=== PATIENT | male | born 1990 | race Caucasian/White ===

== ENCOUNTER 2016-09-23 10:56 | Emergency (ER) | payer SELFPAY ==
[~2016-09-23] VITALS: Ht 175.3 cm; Wt 70.0 kg
[2016-09-23 11:01] VITALS: BP 126/85; PULSE 105; RESP 16; O2SAT 100
--- NOTE | 2016-09-23 11:08 | ED.REPORT ---
HPI-Dental/Mouth Prob Date of Service Sep 23, 2016 ED Provider: History of Present Illness: left sided jaw pain since yesterday, takes THC for the pain. no dental care. primary care is no one. normally healthy 10/22 Nursing Notes Stated Complaint: POSS ABSCESS WISDOM TOOTH Chief Complaint: Dental Nursing Notes Reviewed: Yes Allergies: Coded Allergies: amoxicillin (Verified Allergy, Severe, Rash, 04/01/15) General Time Seen by MD: 11:07 Chief Complaint Tooth pain Hx Obtained From: Patient Onset Occurred: Yesterday Past Medical History Past Medical History denies Denies: Asthma, Diabetes mellitus Past Surgical History none Smoking History Current Every Day Smoker (1 to 2 cigars a day for 13 years) Social History Alcohol Use: "Social" Drug Use: THC Occupation live with grandma and partner, no work or school at this time 09/23/2016 Ambulatory Status Independent Review of Systems Basic Review of Systems Eyes: Vision NL, No discharge Hematologic: No bleeding, No bruising Psychiatric: Normal thought content Physical Exam Initial Vital Signs Vital Signs (First) Date Time Temp Pulse Resp B/P Pulse Ox O2 Delivery O2 Flow Rate FiO2 09/23/16 11:01 37.2 105 16 126/85 100 Room Air Initial VS: Reviewed, Vital signs normal General/Constitutional: Well-developed, Well-nourished Head / Eyes: Atraumatic, Normocephalic, PERRL Respiratory: Breath sounds normal, Clear to auscultation, No respiratory distress Cardiovascular: Regular rate & rhythm, Heart sounds normal, Intact distal pulses Abdomen / GI: Soft, Non-tender, No guarding, No rebound, No distention Back: No CVA tenderness Lymphatic: No lymphadenopathy Extremities: Vascular intact, Neuro intact, No swelling, No tenderness Skin: Warm, Dry, No cyanosis Neurologic: Alert, Oriented, Nonfocal Psychiatric: Mood/affect normal, Behavior normal, Normal thought content ENT: Atraumatic, Airway patent, Mucous membranes moist, Pharynx NL, No peritonsillar abscess oral exam shows upper left molar with extensive decay. Able to open mouth 3 fingers width wide. No visible discharge or gum swelling. no lymph node swelling Neck: Atraumatic, Supple, No meningismus General/Constitutional: Awake, Alert, No acute distress Respiratory / Chest: Atraumatic, Breath sounds NL, Breath sounds = bilat, No respiratory distress Cardiovascular: Heart rate NL, Regular rhythm, Heart sounds NL, No gallop Re-Eval/Medical Decision Med Decision/Clinical Course 25 year old male presents to the ER for evualation of left sided jaw pain which started yesterday. Exam indicates ears are fine. oral exam shows a left upper molar with extensive decay. No gum swelling, no trismus, no lymph node involvement. No sign of any abscess or tooth fracture. Patient does not want an injection of toradol for the wants, only wants pills. Discharge & Departure Primary Impression: Toothache Disposition: Home Patient Instructions: Dental Caries (ED) Additional Instructions: You have a clear cavity in the molar. Please start antibiotics clindamycin 300 mg 4 times a day for 10 days. Also ibuprofen 800 mg 3 times a day for 5 days. You will need to see a dentist to address this issue. Please use the list of resources to call and get definitive care for your tooth. Referrals: [facility] Dental [facility] EDSupervising Provider for APC: Scar Hurst MD copies to: [facility] Delaney Laboy Sep 23, 2016 11:08
== END 2016-09-23 11:38 | disposition home or self-care (01) ==
LOC: SED 10:59
DX: K08.89 Other specified disorders of teeth and supporting structures (principal); F17.200 Nicotine dependence, unspecified, uncomplicated; Z88.1 Allergy status to other antibiotic agents